=== PATIENT | male | born 1990 | race African-American/Black ===

== ENCOUNTER 2017-05-19 16:40 | Emergency (ER) | payer OTHER ==
[~2017-05-19] VITALS: Ht 182.9 cm; Wt 89.4 kg
[2017-05-19] MEDS ORDERED: NKM (16:47)
[2017-05-19 16:54] VITALS: BP 128/87
--- NOTE | 2017-05-19 17:20 | Emergency Room Report ---
History of Present Illness General Chief Complaint: Upper Extremity Injury Source: Patient Present Illness HPI 27-year-old male presents to the emergency department complaining of 10 out of 10 in severity localized right middle finger pain that has been progressive over 3 days. Patient reports pain initially just at the cuticle which progressed the swelling, erythema and tenderness. Patient is up-to-date with tetanus vaccinations he denies fevers, chills, nausea, vomiting or trauma to the finger.Denies numbness tingling or loss of sensation or gross motor movements of the extremities, incontinence of bowel or bladder. Denies CP, Palpitations, LOC, AMS, dizziness, Changes in Vision, Sensation, paresthesias, or a sudden severe headache. Allergies: Coded Allergies: No Known Allergies (Unverified , 05/19/17) Patient History Past Medical History: see triage record Past Surgical History: none Pertinent Family History: none Immunizations: UTD Reviewed Nursing Documentation: PMH: Agreed, PSxH: Agreed Nursing Documentation-PMH Hx Seizures: Yes - "Used to have seizures" No meds, last sz three years ago. Review of Systems All Other Systems: negative except mentioned in HPI Physical Exam Vital Signs Date Time Temp Pulse Resp B/P (MAP) Pulse Ox O2 Delivery O2 Flow Rate FiO2 05/19/17 16:43 98.4 93 16 128/87 100 Room Air Sp02 EP Interpretation: reviewed, normal General Appearance: no apparent distress, alert, GCS 15, non-toxic Head: normocephalic, atraumatic ENT: hearing grossly normal, normal voice Neck: full range of motion, supple/symm/no masses Respiratory: lungs clear, normal breath sounds Cardiovascular #1: regular rate, rhythm, normal capillary refill Musculoskeletal: back normal, gait/station normal, normal range of motion Neurologic: alert, oriented x3, responsive, sensory intact, speech normal Skin: normal color, no rash, warm/dry, well hydrated, other - paronychia of the right middle finger, no finger pad ttp, no streaking, swelling, erythema and visible purulence. Procedures Incision and Drainage Incision and Drainage : Consent: Verbal Site: right middle finger Blade Size: 11 I & D Procedure: betadine prep Wound Location: upper extremity - right middle finger cuticle Wound's Depth, Shape: superficial Wound Length (cm): 1 Wound Explored: contaminated - purulent drainage expressed Volume Anesthetic (ccs): 0 Splint Applied?: No Sling Applied?: No Patient Tolerated: Well Complications: None Medical Decision Making PA Attestation Dr. valdivia is my supervising Physician whom patient management has been discussed with. Diagnostic Impression: Primary Impression: Paronychia of finger Qualified Codes: L03.011 - Cellulitis of right finger ER Course Pt. presents to the ED c/o pain, swelling, and erythema of Right middle finger x 3 days. Ddx considered but are not limited to cellulitis, paronychia, eponychia, ingrown toe nail, fracture, d/L, gout Vital signs: are WNL, pt. is afebrile H&PE are most consistent with left middle finger paronychia ORDERS: none required at this time, the diagnosis is clinical ED INTERVENTIONS: -Tylenol PO - verbal consent was received . - lesion was cleaned with Betadine prep. - Small incision using a sterile no. 11 blade to drain the paronychia. pt. tolerated well without complication. - sterile band-aid was then applied afterward. - will d/c pt. with PO abx. DISCHARGE: At this time pt. is stable for d/c to home. Will provide printed patient care instructions, and any necessary prescriptions. Care plan and follow up instructions have been discussed with the patient prior to discharge. Last Vital Signs Date Time Temp Pulse Resp B/P (MAP) Pulse Ox O2 Delivery O2 Flow Rate FiO2 05/19/17 16:54 98.4 65 16 128/87 100 Room Air Disposition: HOME, SELF-CARE Condition: Stable Scripts Bacitracin/Polymyxin B Sulfate (BACITRACIN-POLYMYXIN OINTMENT) 28.35 Gm Oint...g. 1 APPLIC TP BID, #28.3 GM Prov: Alana Lepe 05/19/17 Clindamycin Hcl (CLINDAMYCIN HCL) 300 Mg Capsule 300 MG ORAL FOUR TIMES A DAY, #28 CAP Prov: Alana Lepe 05/19/17 Referrals: NOT CHOSEN IPA/MD,REFERRING (PCP) Patient Instructions: Paronychia, [id number] Additional Instructions: Take medications as directed. Follow up with a Primary Care Provider in 3-5 days, even if your symptoms have resolved. --Please review list of primary care clinics, if you do not already have a primary care provider Return sooner to ED if new symptoms occur, or current symptoms become worse. - Please note that this Emergency Department Report was dictated using itzbigcut and print machine operator technology software, occasionally this can lead to erroneous entry secondary to interpretation by the dictation equipment. Alana Lepe May 19, 2017 17:20
[2017-05-19] MEDS ORDERED: CLINDAMYCIN HC300 MG ORAL (17:21)
[2017-05-19] MEDS ORDERED: BACITRACIN-P28.35 GM TP (17:21)
[2017-05-19] MEDS ORDERED: Bacitracin Oint UD TOPIC ONE (17:30)
[2017-05-19 17:41] VITALS: BP 128/87
== END 2017-05-19 18:30 | disposition home or self-care (01) ==
LOC: EMR 17:05
DX: L03.011 Cellulitis of right finger (principal)
CPT/HCPCS: 10060; 99283